=== PATIENT | female | born 1990 | race Caucasian/White ===

== ENCOUNTER → 2020-09-12 | Outpatient (REF) ==
--- NOTE | 2020-09-13 06:18 | REP ---
INDICATION: DDD-BAD BACK COMPARISON: None. TECHNIQUE: AP, lateral, bilateral oblique and sunrise views. FINDINGS: The osseous structures and joint spaces are intact and normal. There is no evidence for acute fracture or dislocation. No joint effusion is appreciated. Surrounding soft tissues are unremarkable. No subcutaneous emphysema or radiodense foreign body. IMPRESSION: Normal age-appropriate left knee examination. No overt degenerative changes. <Electronically signed by Chandana Belrte > 09/13/20 [id number]
--- NOTE | 2020-09-13 07:12 | REP ---
INDICATION: DDD-BAD BACK COMPARISON: None. TECHNIQUE: AP, lateral, coned-down views of the lumbar spine. FINDINGS: Three views of the lumbosacral spine demonstrate satisfactory alignment and lordosis without acute fracture / compression injury or subluxation. Minimal endplate sclerosis and disc space narrowing at L5-S1 is suggested and requires clinical correlation. IMPRESSION: 1. No acute fracture / compression injury or subluxation. 2. Minimal degenerative change at L5-S1. <Electronically signed by Chandana Beltre > 09/13/20 [id number]
== END ==
LOC: M RAD 15:52
PROVIDERS: ATTEND Internal Medicine
DX: M54.5 Low back pain (principal); M25.562 Pain in left knee